=== PATIENT | female | born 1955 | race Caucasian/White ===

== ENCOUNTER 2017-07-16 13:15 | Inpatient (IN) | payer OTHER ==
[~2017-07-16] VITALS: Ht 165.1 cm; Wt 54.9 kg
[2017-07-16] MEDS ORDERED: VICODIN 5-3001 EACH PO (15:01)
[2017-07-16] MEDS ORDERED: LEVOTHYROXINE88 MCG PO (15:01)
--- NOTE | 2017-07-20 07:51 | Operative Report ---
Operative/Inv Procedure Report Surgery Date: 07/20/17 Name of Procedure: 1.L5 pars osteotomies 2.L5/S1 far lateral discectomy 3.L5/S1 TLIF with jose tritanium cage, autograft 4.L5/S1 segmental posterolateral arthrodesis with jose kirkpatrick pedicle screws /rods, autograft, allograft 5.ICBM aspirate 6.O-arm navigation Pre-Operative Diagnosis: left L5/S1 foraminal, far lateral HNP Post-Operative Diagnosis: same Estimated Blood Loss: 50ml to 100ml Surgeon/Environmental Compliance Inspector: Marc ROONEY,Emir Rajput MD Anesthesia: general endotracheal tube Monitors: neurophysiologic monitoring IV Fluids: replaced with crystalloid Implants: jose Urine Output: via carranza Drains: med HV Specimens: L5/S1 disc material Complications: none Condition: stable Operative Indication: 61yo woman s/p work related injury to her low back with progressive left LE pain , parasthesias and the interval development of near complete foot drop with left lateral and foraminal L5/S1 HNP with severe L L5 nerve root impingement now presents for operative intervention. Operative/Procedure Note Note: Patient was taken to the operating room. After appropriate patient identification and surgical timeout, neurophysiologic monitoring leads were placed and baseline recordings obtained the patient underwent smooth induction of general endotracheal anesthesia without incident. Carranza catheter was sterilely inserted. DVT prophylaxis was utilized throughout the case. Patient given 2 g of IV Preoperative Prophylaxis, Redosed at 4 Hours Mid Case. With All Tubes and Lines Secured She Was Carefully Turned to the Prone Position on the Jamal Table Taking Care to Ensure That All Pressure Points Were Well-Padded. The Lumbar Region Was Widely Prepped and Draped in Usual Sterile Fashion Using Povidone Solution. A Vertical Midline Skin Incision Was Marked and Infiltrated with Local Anesthetic. Localizing X-Ray Was Obtained with a Small Gauge Spinal Needle Placed Superficially Identifying This at the Level of L5. Skin incision was made just caudal to our gillian with a 10 blade knife and extended caudally. A self-retaining retractor was placed. Dissection was carried through the subcutaneous tissue with the Bovie to the lumbodorsal fascia. The fascia was incised in midline and a subperiosteal dissection lumbar paravertebral muscles was performed bilaterally Bovie exposing underlying spinous processes lamina and the facet joints. Facets of L5/S1 were noted to be hypertrophic. A Lyle 4 was placed at the presumed L5 pars and intraoperative x-ray was obtained and confirmed the correct localization. We exposed the transverse processes of L5 and sacral ala bilaterally which were decorticated with a high-speed drill. We then focused our attention to the decompression. A L5/S1 laminectomy, L5pars osteotomy and facetectomy were performed using the combination of Leksell rongeur, bone scalpel, and Kerrisons skeletonizing the pedicle of L5 and S1 and widely decompressing the exiting L5 traversing S1 nerve roots, and midline thecal sac. The Left S1 root was swollen and tented dorsally and a large extruded disc herniation was noted beneath the root. Working from the patient's left side, the thecal sac was gently mobilized to the midline. The underlying disc annulus was identified. A cuff of overlying venous epidural tissue was coagulated and divided. An annulotomy was made with a 11 blade knife and discectomy was performed with straight and angled curettes, disc space juarez and rasps until all the cartilaginous endplates were removed. A large extruded disc was resected from the epidural canal and left neuroforamen until the L5 root was well decompressed. The root of L5 was noted to be duplicative and partially conjoined to the traversing left S1 root. After appropriate trials, autograft was packed into the anterior disc and then a 12 x 23X6 jose tritanium cage was selected and gently tamped into the interspace under direct guidance. Cage was countersunk. 10 mL of bone marrow aspirate was then obtained and was added to the morcellated autograft. Autograft was then packed over the transverse processes from L5 to S1 bilaterally and covered with 5cc of vitoss divided between the sides. The O arm reference arc was attached to the S1 spinous process and a spin was obtained. Working with O arm navigation, entry points for pedicle screws were selected bilaterally and marked with the drill. The pedicles were traversed with a gearshift under navigation. The holes were sounded, tapped, resounded and FloSeal placed within the pedicles to minimize backbleeding. 6.5 x 50 mm screws were placed bilaterally at L5, 6.5 x 40 mm placed bilaterally at S1. Screws themselves were well seated good purchase. We obtained a second spin of the O arm confirming placement all the instrumentation which appeared in good position. 30 mm evon placed on the left and 35mm evon on the right were then top loaded into the screws and locking caps placed and the screws were finally tightened with an antitorque device. Hemostasis is achieved using a bipolar, FloSeal, thrombin-soaked Gelfoam. The wound was copiusly irrigated with sterile saline bacitracin irrigation. 1 g of IV vancomycin powder was placed in the wound on the cut muscle and soft tissue surfaces. A medium Hemovac drain was placed into the wound and secured to the skin with a 2-0 nylon suture. Monitoring was stable and we began wound closure. Deep muscle was reapproximated interrupted 0 Vicryl suture the lumbodorsal fascia was reapproximated interrupted 0 Vicryl suture. Subcutaneous tissue was copiously irrigated and closed with interrupted 2-0 Vicryl suture and the skin was closed with anahi. Wounds clean and dried. Bacitracin and a sterile occlusive dressing was placed. Patient was returned to the supine position, awakened extubated and taken to PACU in stable condition. She was noted to be moving all 4 extremities at the completion of the case. All sponge, needle, and injuring counts are correct at the completion of the procedure 3. Neurophysiologic monitoring was stable throughout the case. Findings: larger extruded L L5/S1 disc herniation, duplicative left L5 root, partially conjoined left L5/S1 roots, spinal bifida occulta defect L S1 Discharge Disposition: PACU
--- NOTE | 2017-07-20 08:41 | RADIOLOGY REPORT ---
EXAMINATION: XR LUMBAR SPINE CLINICAL INFORMATION: L5-S1 fusion. COMPARISON: MRI of the lumbar spine from 07/16/2017 TECHNIQUE: Single intraoperative lateral radiograph FINDINGS/IMPRESSION: There is a surgical marker/probe projecting over the soft tissues at the L5 level. Vertebral body height and sagittal alignment are maintained. Multilevel mild facet arthropathy. Minor vascular calcifications. Please see operative report for details.
--- NOTE | 2017-07-20 09:01 | RADIOLOGY REPORT ---
EXAMINATION: XR LUMBAR SPINE CLINICAL INFORMATION: L5/S1 fusion COMPARISON: Intraoperative radiographs from earlier the same day. MRI of the lumbar spine from 07/16/2017 TECHNIQUE: Single lateral intraoperative radiograph FINDINGS/IMPRESSION: Surgical instruments project over the dorsal soft tissues at the L5-S1 level. Please refer to the operative report for details.
--- NOTE | 2017-07-20 11:23 | Operative Report ---
Operative/Inv Procedure Report Surgery Date: 07/20/17 Name of Procedure: Right-sided hemilaminotomy hemilaminectomy and medial facetectomy foraminotomy and discectomy at L5-S1 L5-S1 transforaminal lumbar interbody fusion L5-S1 posterior lateral fusion L5-S1 posterior lateral nonsegmental fixation using Madison Sirota pedicle screws L5-S1 placement of intervertebral biomechanical device Madison titanium device use of autograft use of allograft use of Stealth navigation Pre-Operative Diagnosis: Lateral recess stenosis critical for pulses radiculopathy Post-Operative Diagnosis: Same Estimated Blood Loss: 50ml to 100ml Surgeon/Crop Scout: Emir Tran MD,Cathryn Ashley Anesthesia: general endotracheal tube Operative/Procedure Note Note: After the successful administration of general endotracheal anesthesia all lines tubes and monitors post anesthesia team the patient was prone on the Jamal table pressure points padded we prepped the patient and placed a spinal needle in the spinous process of L5 using x-ray to confirm level was confirmed patient was prepped and draped in usual fashion 10 mL of lidocaine with epinephrine was infiltrated in subcutaneous tissues were 10 was used to incise the skin. Bovie cautery was used to incise the lumbar fascia which was taken down and a subperiosteal diet fashion exposing the spinous process lamina of L5 and S1 care was taken not to denude 45 joint space we placed a Sturgeon lateral to the pars at L5 using x-ray confirm level goals confirmed with infiltrative processes of L5 and S1 denude the L5 S1 joint bilaterally soft tissue retractors were inserted. We then made cuts in the pars ventricular size on the left-hand side at L5 and the lamina of L5 removing the descending facet of L5 removed the spinous process and the lamina a bit more cuts with the bone scalpel in the medial facet complex on the right-hand side exposing the thecal sac and entirety we then remove the superior facet of S1 as was the lateral recess we see a very swollen and tense S1 traversing nerve root after more generous foraminotomy was performed spell causing S1 and L5 pedicles we revisualize a large bulky L5 nerve root which actually had a bifid appearance it exited slightly more inferior and lateral than typical nerve medialized thecal sac found a bulging disc to the L1 large disc herniation from the far lateral position which tracked medially and cranially over the L5 to the L5 body. We then worked out more laterally underneath the bifid L5 nerve root freeing this up after satisfied with the extruded fragment into the disc space and 11 blade as a retracted thecal sac medially forward thorough discectomy at this level with comminution pituitaries juarez curettes we then trialed and placed a 12 x 26 lordotic trititanium spacer the disc space was prepacked morselized autograft and allograft. We then placed the spinous process clamp the spinous process of S1 and brought the O arm in on the [employer] plantar screw to points and trajectories we then decorticated transverse processes bilaterally with a high-speed drill to drill pilot safety inspector holes the junction of pars reticularis facet, transverse processes used the navigated [employer] probe to make pilot safety inspector holes tapped with 5.5 mm tap and then placed our pedicle screws using a 6 5 x 46 5 x 50 at L5 and S1 left-hand side 6 5 x 56 5 x 40 the right-hand side all screws stimulated above threshold we then brought the O arm in for confirmatory spin all hardware position the left-sided screws were backed out half a turn each we then placed per to precontoured rods a 35 mm left to 30 mm the right secured in place with set screws and tightened down to torque limiting feeder driver chose processes were packed morselized autograft and V toss soaked in bone marrow aspirate taken from the pedicles. The was a copious irrigated bacitracin irrigation all bleeding was to minimum vancomycin powder was inserted was a distributor and soft tissues the wounds and closed through separate stab incision over 7 EFRAIN drain was placed within closed in layers using 0 Vicryl for muscle and fascia 2-0 Vicryl for deep dermis and skin was closed a running subarticular 4L of note 20 mL of Exparel was obtained subcutaneous tissues and muscle enclosing a dressing was applied and the case all needle counts sponge and instrument count was correct. The patient was taken to recovery in stable condition.
--- NOTE | 2017-07-20 13:49 | RADIOLOGY REPORT ---
EXAMINATION: CR LUMBAR SPINE/INTRAOPERATIVE FLUOROSCOPY CLINICAL INDICATION: L5-S1 fusion with O-arm. COMPARISON: Lumbar spine films from 07/20/2017. TECHNIQUE/FINDINGS: Fluoroscopic O-arm equipment was dedicated to the operating room for the performance of L5-S1 fusion. 2 O-arm spins were acquired and are archived in PACS. Please refer to operative notes for procedural detail. FLUOROSCOPY TIME: 8.0 seconds. IMPRESSION: Administrative dictation for intraoperative fluoroscopy and image archiving in PACS. Please refer to operative notes for details.
[2017-07-20 14:06] VITALS: BP 116/64
[2017-07-20 14:21] VITALS: BP 116/64
--- NOTE | 2017-07-20 14:29 | Patient Discharge Instructions ---
Discharge Instructions General Discharge Information You were seen/treated for: Low back pain, neuropathy related to: L5S1 foraminal and far lateral HNP You had these procedures: TLIF L5 S1 Watch for these problems: Increasing pain despite the use of pain medication Increasing redness, warmth or swelling near incision Drainage of any type from incision Inability to urinate or move bowels Loss of motor function to both legs Fever greater than 101.5 Do not soak the wound: Yes No bath, but you may shower: Yes Other wound care: Keep wound clean and dry. No ointments on or near incision for a minimum of 6 weeks unless otherwise indicated by Dr. Tran Diet Continue normal diet: Yes Recommended Diet: Regular Activity Full Activity/No Limits: No Activity Self Limited: Yes Pounds, do NOT lift more than: 5 Acute Coronary Syndrome Inclusion Criteria At DC or during hospital stay patient has or had the following: ACS DIAGNOSIS No Discharge Core Measures Meds if any: Prescribed or Continued at Discharge Meds if any: NOT Prescribed or Continued at Discharge Congestive Heart Failure Inclusion Criteria At DC or during hospital stay patient has or had the following: CHF DIAGNOSIS No Discharge Core Measures Meds if any: Prescribed or Continued at Discharge Meds if any: NOT Prescribed or Continued at Discharge Cerebrovascular accident Inclusion Criteria At DC or during hospital stay patient has or had the following: CVA/TIA Diagnosis No Discharge Core Measures Meds if any: Prescribed or Continued at Discharge Meds if any: NOT Prescribed or Continued at Discharge Venous thromboembolism Inclusion Criteria VTE Diagnosis No VTE Type NONE VTE Confirmed by (Test) NONE Discharge Core Measures - Per Current guidelines, there needs to be overlap - treatment for the first 5 days of Warfarin therapy. - If discharged on Warfarin prior to 5 days of - overlap therapy, the patient will need to be - assessed for post discharge needs including - *Post discharge parental anticoagulation - *Warfarin and/or parental anticoagulation education - *Follow up date to check INR post discharge At least 5 days overlap therapy as Inpatient No Meds if any: Prescribed or Continued at Discharge Note: Overlap Therapy is Warfarin and Anticoagulant Meds if any: NOT Prescribed or Continued at Discharge
--- NOTE | 2017-07-20 14:32 | Surgical Discharge Summary ---
Visit Information Visit Dates Admission Date: 07/20/17 Discharge Date: 07/22/17 History of Present Illness Chief Complaint: Low back pain, neurpathy related to L5 S1 far lateral and foraminal HNP Medical History Blood Transfusion Hx: No Isolation History: Standard Surgical History Pertinent Surgical History: appendectomy Psychosocial History Where Do You Live? Home Who Do You Live With? Patient/Self Review of Systems: See H&P Hospital Course Course Attending Physician: Marc ROONEY,Cathryn Ashley Primary Care Physician: Harman Mejia MD Hospital Course: Stacy was admitted to the hospital following a TLIF L5-S1. She tolerated the procedure well and was transferred to a general surgical floor. Her diet was advanced and tolerated. She was evaluated and treated by physical therapy. At the time of hospital discharge, her vital signs were stable and within normal limits. Her pain was controlled with po pain medications and her neurovascular status was grossly intact. Her drain was removed prior to discharge home. She was set up for VNA services to continue at her sister's house. Her dressing was changed and prescriptions were sent for dilaudid, colace, and zofran prn. Complications: None Allergies: Coded Allergies: No Known Allergies (07/16/17) Disposition Summary Disposition Principal Diagnosis: Spinal stenosis, L5-S1 Additional Diagnosis: None Discharge Disposition: home health services Discharge Instructions General Discharge Information Code Status: Full Code Patient's Diet: Regular, Advance as tolerated Patient's Activity: WBAT Follow-Up Instructions/Appts: Follow up with Dr. Tran in two weeks from date of surgery. Please call office to arrange/confirm this appoinment. Medications at Discharge Discharge Medications: Stop taking the following medications: Hydrocodone/Acetaminophen (Vicodin 5-300 MG Tablet) 5 MG-300 MG TABLET ORAL EVERY 4-6 HOURS as needed for PAIN Continue taking these medications: Levothyroxine Sodium (Levothyroxine Sodium) 88 MCG TABLET 1 Tablet ORAL DAILY Start taking the following new medications: Hydromorphone HCl (Dilaudid) 2 MG TABLET 1-2 Tablet ORAL EVERY 4-6 HOURS NEEDED as needed for PAIN CONTROL Qty = 36 No Refills Instructions: TYLENOL IN ADDITION OR ALTERNATIVELY Docusate Sodium (Colace) 100 MG CAPSULE 1 Capsule ORAL TWICE DAILY as needed for CONSTIPATION Qty = 60 No Refills Instructions: HOLD FOR LOOSE STOOL Ondansetron HCl (Zofran) 4 MG TABLET 1 Tablet ORAL Every 6-8 Hours as Needed as needed for NAUSEA/VOMITING Qty = 12 No Refills Copies To: Roberto ROONEY,Harman Lr
--- NOTE | 2017-07-20 14:35 | Admission Core Measures ---
Acute Coronary Syndrome (CM) ACS Core Measures Acute Coronary Syndrome Diagnosis No Congestive Heart Failure (NEW) CHF Core Measures Congestive Heart Failure Diagnosis No Cerebrovascular Accident (NEW) CVA Core Measures CVA/TIA Diagnosis No Venous Thromboembolism VTE Core Audrey (View Protocol) VTE Risk Factors Surgery No Mechanical VTE Prophylaxis d/t N/A MechProphylax Ordered No VTE Pharm Prophylaxis d/t NA PharmProphylax ordered Problem List As ranked by this Provider includes Assessment & Plan 1. Herniation of intervertebral disc of lumbosacral region HOME MEDS Home Med List Hydrocodone/Acetaminophen (Vicodin 5-300 MG Tablet) 5 MG-300 MG TABLET 1 TAB PO Q4-6 PRN PAIN (Reported) Levothyroxine Sodium 88 MCG TABLET 1 TAB PO DAILY HORMONE (Reported)
--- NOTE | 2017-07-20 14:52 | PN- Neurosurgical ---
Subjective Subjective: No acute post operative events reported. Pt utilizing dilaudid substance abuse therapist with good effect presently. No complaints of chest pain, shortness of breath and difficulty breathing. No complaints of nausea and vomitting. Had carranza catheter removed in pacu, has yet to void. Has yet to ambulate. Had preoperative left sided foot drop, states left foot remains numb. Objective Vital Signs and I&Os Vital Signs Date Time Temp Pulse Resp B/P B/P Pulse O2 O2 Flow FiO2 Mean Ox Delivery Rate 07/20 1421 97.7 62 18 116/64 07/20 1406 97.3 62 18 116/64 96 Room Air Intake & Output 07/20 1600 07/20 0800 07/20 0000 07/19 1600 07/19 0800 07/19 0000 Intake Total Output Total Balance Patient 121 lb Weight Weight Bed scale Measurement Method Physical Exam: General: Alert and oriented x3, no acute distress Cardiac: RRR, s1s2 HEENT: Right eye pupil dilated, minimally reactive, left pupil reactive ( baseline due to right eye injury), no report of visual changes Pulm: C T A bilaterally ABD: soft, non-tender, non-distended Extremities: Moves all extremities. Noted weakness to LLE in plantar and dorsi flexion. States diminished sensation in left leg, no deviation from preoperative baseline. Skin warm and well perfused. DP pulses palpable. Bialteral calves soft and non-tender Surgical site: Lumbar, hemovac holding suction, dressing with small amount of dried blood noted. No erythema or swelling surrounding dressing Assessment/Plan Assessment/Plan This is a 61 year old female, POD 0, s/p TLIF L5 S1 for far lateral and foraminal HNP -Continue home synthroid -dPCA for pain now, will transition to po meds tomorrow -[place] [employer] brace as well as AFO for left foot ordered -OOB with brace -Reg diet -Hep sub q to start tomorrow for dvt ppx -Ancef 2 g q8 while drain in place -Keep drain until less than 50 per shift and okay'd for dc by Dr. Tran Core Measures Venous Thromboembolism VTE Risk Factors Surgery No Mechanical VTE Prophylaxis d/t N/A MechProphylax Ordered No VTE Pharm Prophylaxis d/t NA PharmProphylax ordered
[2017-07-20 16:27] VITALS: BP 110/58
[2017-07-20 16:28] VITALS: BP 110/58
[2017-07-20 19:07] VITALS: BP 124/72
[2017-07-20 23:08] VITALS: BP 120/61
[2017-07-21] VITALS (9 sets, daily range): BP systolic 102–134; BP diastolic 60–70
--- NOTE | 2017-07-21 07:30 | PN- Neurosurgical ---
Subjective Subjective: Pt doing well this am. Pain well controlled. No new complaints. Objective Vital Signs and I&Os Vital Signs Date Time Temp Pulse Resp B/P B/P Pulse O2 O2 Flow FiO2 Mean Ox Delivery Rate 07/21 0551 97.9 69 20 102/65 96 Room Air 05/ 0400 97.9 68 17 104/63 05/08 0400 97.9 68 17 104/63 98 05/08 0200 97.9 66 18 116/65 05/08 0200 97.9 66 18 116/65 98 Room Air 05/ 0002 98.2 70 18 134/70 99 Room Air / 2308 97.9 75 18 120/61 98 Room Air / 2247 Room Air Room Air / 1907 97.9 76 18 124/72 95 Room Air / 1628 97.9 70 16 110/58 05/ 1627 97.9 70 16 110/58 95 Room Air / 1421 97.7 62 18 116/64 05/07 1406 97.3 62 18 116/64 96 Room Air Intake & Output 07/21 0807/21 0000 07/20 1600 07/20 0800 07/20 0000 07/19 1600 Intake Total 640 721.8 Output Total 625 575 Balance 15 146.8 Intake, IV 640 1.8 Intake, Oral 720 Number 0 Bowel Movements Output, 75 75 Drainage Output, Urine 550 500 Patient 54.885 kg Weight Weight Bed scale Measurement Method Physical Exam: AF, VSS HV with 75cc last 2 shifts serosanguinous neuro exam is stable, stable left foot drop, L5 hypesthesia Incision is c,d,i flat with min stain on dressing using IS with low lung volumes was oob to BR, voiding on own Current Medications: Current Medications Sig/Boyd Start time Last Medication Dose Route Stop Time Status Admin Acetaminophen 650 MG Q4P PRN 07/20 1315 AC PO Bisacodyl 10 MG DAILY NEEDED PRN 07/20 1315 AC OR Cefazolin Sodium 2 GM IQ8 07/20 1600 AC 07/20 N/A 1 UNIT IV 07/28 1559 2354 Diazepam 5 MG Q8P PRN 07/20 1315 AC 07/21 PO 0448 Docusate Sodium 100 MG TID 07/20 1400 AC 07/20 PO 1657 Heparin Sodium 5,000 UNIT Q8 07/21 0600 AC 07/21 (Porcine) SC 0450 Hydromorphone HCl 2 MG Q4-6 PRN PRN 07/20 1315 AC PO Hydromorphone HCl 4 MG Q4-6 PRN PRN 07/20 1315 AC PO Hydromorphone HCl 50 MG Q24H PRN 07/20 1245 AC Sodium Chloride 45 ML IV Ketorolac 15 MG Q6P PRN 07/20 1315 AC Tromethamine IV 07/25 1314 Levothyroxine Sodium 0.088 MG DAILY 07/20 1352 AC PO Morphine Sulfate 4 MG .STK-MED ONE 07/20 1253 DC IM 07/20 1254 Morphine Sulfate 4 MG .STK-MED ONE 07/20 1154 DC IM 07/20 1155 Ondansetron HCl 4 MG Q6P PRN 07/20 1315 AC IV Oxycodone/ 2 TAB Q4P PRN 07/20 1315 AC Acetaminophen PO Senna 374 MG QPM PRN 07/20 1315 AC PO Sodium Chloride 1,000 ML Q12H 07/20 1300 AC 07/21 IV 07/21 1259 0001 Trimethobenzamide HCl 200 MG Q6P PRN 07/20 1315 AC IM Zolpidem Tartrate 2.5 MG AT BEDTIME PRN 07/20 1315 AC PO Assessment/Plan Assessment/Plan Pt POD1 s/p L5/S1 TLIF and doing well. Neurologically stable with persistent left foot drop. Plan: -OOB -AFO, lumbar brace from [employer] today -cont drain until less than 50cc per shift and then dc, abx until drain out -likely home tomorrow if stable -reg diet -dc PRODUCTION MANUFACTURING WORKER -DVT prophylaxis Core Measures Venous Thromboembolism VTE Risk Factors Surgery No Mechanical VTE Prophylaxis d/t N/A MechProphylax Ordered No VTE Pharm Prophylaxis d/t NA PharmProphylax ordered Attending MD Review Statement Attending Statement Attending MD Statement: examined this patient, discuss w/resident/PA/CUT IN WORKER, discussed w/nursing
[2017-07-22 07:18] VITALS: BP 129/65
--- NOTE | 2017-07-22 07:21 | PN- Neurosurgical ---
Subjective Subjective: Pt had nausea last pm and unable to horacio dinner. Feels better this am. Passing flatus. Otherwise no complaints. Pain well controlled. Objective Vital Signs and I&Os Vital Signs Date Time Temp Pulse Resp B/P B/P Pulse O2 O2 Flow FiO2 Mean Ox Delivery Rate 07/212 98.3 90 120/68 96 Room Air 07/21 1405 98.1 81 18 122/70 98 Room Air 07/21 1205 97.8 72 20 130/60 97 Room Air 07/21 0841 97.8 77 20 122/60 97 Room Air 07/21 0800 97.9 69 20 102/65 Intake & Output 07/22 0800 07/22 0000 07/21 1600 07/21 0807/21 0000 07/20 1600 Intake Total 416 450 9223 640 721.8 Output Total 50 800 1225 625 575 Balance 550 -400 45 15 146.8 Intake, IV 300 200 650 640 1.8 Intake, Oral 300 200 620 720 Number 0 0 Bowel Movements Output, 50 75 75 75 Drainage Output, Urine 800 1150 550 500 Patient 54.885 kg Weight Weight Bed scale Measurement Method Physical Exam: AF, VSS, VC 1L on IS incision is flat and no new drainage HV with 50cc last shift serosanguinous neuro exam is stable with left foot drop unchanged and L5 sensory hypesthesia, normal motor/sensory RLE abd is soft, NT, NABS was oob yest ambulating voiding on own Current Medications: Current Medications Sig/Boyd Start time Last Medication Dose Route Stop Time Status Admin Acetaminophen 1,000 MG Q6H 07/21 0845 DC 07/22 N/A 1 UNIT IV 07/22 0259 0304 Acetaminophen 650 MG Q4P PRN 07/20 1315 DC PO Bisacodyl 10 MG DAILY NEEDED PRN 07/20 1315 AC MT Cefazolin Sodium 2 GM IQ8 07/20 1600 AC 07/22 N/A 1 UNIT IV 07/28 1559 0005 Diazepam 5 MG Q8P PRN 07/20 1315 AC 07/21 PO 0448 Docusate Sodium 100 MG TID 07/20 1400 AC 07/21 PO 2131 Heparin Sodium 5,000 UNIT Q8 07/21 0600 AC 07/22 (Porcine) SC 0538 Hydromorphone HCl 2 MG Q4-6 PRN PRN 07/20 1315 AC 07/21 PO 1708 Hydromorphone HCl 4 MG Q4-6 PRN PRN 07/20 1315 AC PO Hydromorphone HCl 50 MG Q24H PRN 07/20 1245 DC Sodium Chloride 45 ML IV Ketorolac 15 MG Q6P PRN 07/20 1315 AC Tromethamine IV 07/25 1314 Levothyroxine Sodium 0.088 MG DAILY 07/20 1352 AC 07/22 PO 0543 Ondansetron HCl 4 MG .STK-MED ONE 07/21 1811 DC IM 07/21 1812 Ondansetron HCl 4 MG Q6P PRN 07/20 1315 AC IV Oxycodone/ 2 TAB Q4P PRN 07/20 1315 DC Acetaminophen PO Patient Medication 1 ED ONE ONE 07/21 1815 DC 07/21 Teaching ED 07/21 1816 1831 Polyethylene Glycol 17 GM DAILY 07/21 1911 AC 07/21 PO 2134 Senna 374 MG QPM PRN 07/20 1315 AC 07/22 PO 0625 Sodium Chloride 1,000 ML Q12H 07/20 1300 DC 07/21 IV 07/21 1259 0001 Trimethobenzamide HCl 200 MG Q6P PRN 07/20 1315 AC IM Zolpidem Tartrate 2.5 MG AT BEDTIME PRN 07/20 1315 AC PO Assessment/Plan Assessment/Plan Pt POD2 s/p L5/S1 TLIF and stable. Plan: -dc drain , dc abx -oob this am -may dc to home if able to horacio po later today -fu 2 weeks for wound check -dc instructions reviewed with pt - cover incision for showers, no submerging, brace oob, no lift more than 5lbs, no driving, keep incision clean and dry, AFO to ambulate, use IS at home Core Measures Venous Thromboembolism VTE Risk Factors Surgery No Mechanical VTE Prophylaxis d/t N/A MechProphylax Ordered No VTE Pharm Prophylaxis d/t NA PharmProphylax ordered Attending MD Review Statement Attending Statement Attending MD Statement: examined this patient, discuss w/resident/PA/[employer]SEM[employer]ER, discussed w/nursing
[2017-07-22] MEDS ORDERED: COLACE100 M1 PO (07:57)
[2017-07-22] MEDS ORDERED: DILAUDID2 M1 PO ×2 (07:57→08:03)
[2017-07-22] MEDS ORDERED: ZOFRAN4 M2 PO (07:57)
[2017-07-22] MEDS ORDERED: RW (11:58)
[2017-07-22 11:59] VITALS: BP 124/70
== END 2017-07-22 16:40 | disposition home health service (06) | DRG 460 ==
LOC: SDA 07-20 02:19 → ENRESERV 07-20 11:47 → ENTRNSPT 07-20 13:26 → EDTRNSPTSTS 07-20 13:34 → EDTRNSPT 07-20 13:34 → 2NB 07-20 13:46 → CMPTRNSPT 07-20 13:47 → ENPENDDIS 07-22 07:56 → ENTRNSPT 07-22 16:30 → EDTRNSPTSTS 07-22 16:37 → EDTRNSPT 07-22 16:37 → 2NB 07-22 16:40 → CMPTRNSPT 07-22 16:53
PROC: 0ST40ZZ Resection of Lumbosacral Disc, Open Approach (ICD-10-PCS; principal; 2017-07-20)
PROC: 00NY0ZZ Release Lumbar Spinal Cord, Open Approach (ICD-10-PCS; principal; 2017-07-20)
PROC: 0SG30AJ Fusion of Lumbosacral Joint with Interbody Fusion Device, Posterior Approach, Anterior Column, Open Approach (ICD-10-PCS; principal; 2017-07-20)
DX: M51.17 Intervertebral disc disorders with radiculopathy, lumbosacral region (principal); E03.9 Hypothyroidism, unspecified; M21.372 Foot drop, left foot; M48.07 Spinal stenosis, lumbosacral region; Q76.0 Spina bifida occulta
CPT/HCPCS: 2NBP; 72020; 72100; 87086; 88304; C9290; J0131; J0690; J1170; J1644; J2405; J3250; J3370